=== PATIENT | male | born 1965 | race Caucasian/White ===

== ENCOUNTER 2016-09-06 15:49 | Emergency (ER) | payer OTHER ==
[2016-09-06] MEDS ORDERED: ONDANSETRON HCL 4 MG/2 ML VIAL ONE (16:16)
--- NOTE | 2016-09-06 16:38 | CT REPORT ---
HISTORY: Acute head trauma. Reference study is February 11, 2015. TECHNIQUE: Axial non-contrast images obtained from skull vertex through foramen magnum. Dose reduction technique was utilized. FINDINGS: There is no evidence of acute hemorrhage, mass, or infarct. Ventricles and sulci are normal in size for the patient's age. Periventricular white matter is within normal limits. Baker-white differentia tion is maintained. Basilar cisterns are normal. The calvarium is intact. Paranasal sinuses and mastoid air cells are clear. IMPRESSION: Normal head CT. Final Electronic Signature: This report was electronically signed by Zelalem Mukherjee MD, FACR on 4:36 PM. peter /
[2016-09-06] MEDS ORDERED: KETOROLAC TROMETHAMINE 30 MG/ML VIAL ONE (16:45)
--- NOTE | 2016-09-06 18:02 | ER NURSING DOCUMENTATION ---
Nurse's Notes [facility] Name:Asad Pineda Age:50 yrs Sex:Male :1965 Arrival Date:09/06/2016 Time:15:51 Bed4 Private MD:Gilberto Cruz Diagnosis:Closed Head Injury w/o Cranial Wound, Unspec State LOC Presentation: 09/06 15:56 Acuity: JOSHUA 2 st 16:17 Presenting complaint: Patient states: Fell backward in chair and hit occiput on filing sj cabinet. No LOC, but no N/V x4 with difficulty with words, and headache. Transition of care: Home. Mechanism of Injury: resulted from a direct blow, a solid object. Notified ED Physician of patient's arrival and CC Dr. Marcelino notified. 16:17 Method Of Arrival: Private Vehicle Triage Assessment: 16:22 General: Appears distressed, Behavior is cooperative, quiet. Pain: Complains of pain in sj entire head Pain currently is 6 out of 10 on a pain scale. Neuro: Level of Consciousness is awake, lethargic, Oriented to person, place, time, event, Reports headache in entire Denies blurred vision paresthesias. Cardiovascular: Capillary refill < 3 seconds. Respiratory: Respiratory effort is even, unlabored, Respiratory pattern is regular. Injury Description: Head injury sustained to right occipital area was sustained 1-2 hours ago. Historical: - Allergies: PENICILLINS; - Home Meds: 1. amlodipine oral 2. Bystolic oral 3. losartan-hydrochlorothiazide oral 4. Lexapro Oral 5. omeprazole Oral 6. Diazepam Oral 7. ProAir HFA 8. Xanax Oral 9. modafinil oral - PMHx: Hypertension; DEPRESSION; ANXIETY; concussion 20 years ago; vertigo; degenerative disc disease of lumbar, thoracic, cervical spine; hiatal hernia; GERD; - PSHx: back x 4; inguinal hernia repair; deviated septal repair; - Tetanus: < 10 years. - Immunization history: Pneumococcal vaccine status is unknown. - Ebola Screening: : Patient negative for fever greater than or equal to 101.5 degrees Fahrenheit, and additional compatible Ebola Virus Disease symptoms. Patient denies exposure to infectious person. Patient denies travel to an Ebola-affected area in the 21 days before illness onset. No symptoms or risks identified at this time. . - Social history: Smoking status: Patient states was never smoker of tobacco. Patient uses alcohol occasionally. Patient/guardian denies using marijuana. Screenin:25 Infectious Disease Risk None. Abuse screen: Denies threats or abuse. Denies injuries sj from another. Nutritional screening: No deficits noted. Vital Signs: 15:55 BP 144 / 83; Pulse 79; Resp 12; Temp 98.2(O); Pulse Ox 93% on R/A; Weight 102.06 kg; sj Height 5 ft. 6 in. (167.64 cm); Pain 6/10; 15:55 BP 158 / 88; Pulse 69; Pulse Ox 86% on R/A; sj 16:15 BP 133 / 78; Pulse 73; Pulse Ox 94% on R/A; Pain 7/10; sj 16:57 BP 178 / 111; Pulse 78; Resp 12; Pulse Ox 94% on 2 lpm NC; Pain 3/10; sj 17:45 BP 131 / 83; Pulse 67; Resp 14; Pulse Ox 94% on R/A; Pain 1/10; sj 15:55 Body Mass Index 36.32 (102.06 kg, 167.64 cm) Harleen Coma Score: 16:08 Eye Response: spontaneous(4). Verbal Response: oriented(5). Motor Response: obeys tl1 commands(6). Total: 15. 16:17 Eye Response: spontaneous(4). Verbal Response: oriented(5). Motor Response: obeys sj commands(6). Total: 15. 16 08:26 Eye Response: spontaneous(4). Verbal Response: oriented(5). Motor Response: obeys tl1 commands(6). Total: 15. Trauma Score (Adult): 09/06 17:59 Eye Response: spontaneous(1); Verbal Response: oriented(1); Motor Response: obeys sj commands(2); Systolic BP: > 89 mm Hg(4); Respiratory Rate: 10 to 29 per min(4); Harleen Score: 15; Trauma Score: 12 ED Course: 15:52 Patient arrived in ED. jl 15:53 Gilberto Cruz MD is Private Physician. jl 15:[address] 16:04 Louis Marcelino MD is Attending Physician. tl1 16:08 Priscila Mcclelland is Primary Nurse. sj 16:[address] jonas 16:25 Valuables Given to family. Patient has correct armband on for positive identification. Bed in low position. Call light in reach. Side rails up X2. Pulse Ox - RN Monitoring Only NIBP On - RN Monitoring Only. 16:26 Inserted saline lock: 20 gauge in left forearm and blood collected. 17:20 Gilberto Cruz MD is Referral Physician. tl1 Administered Medications: 16:05 Drug: Zofran 4 mg; Route: IVP; Infused Over: 2 mins; Site: left forearm; 16:39 Follow up: Response: Nausea is decreased sj 16:38 Drug: Toradol 15 mg; Route: IVP; Site: left forearm; sj 16:56 Follow up: Response: Pain is decreased Outcome: 17:21 Discharge ordered by . tl1 17:59 Discharged to home ambulatory, with family. sj 17:59 Condition: stable 17:59 Instructed on discharge instructions, follow up and referral plans. medication usage, Demonstrated understanding of instructions, medications, Prescriptions given X 2. 18:01 Patient left the ED. 06 09:26 Discharge F/U Call: Unable to reach: no answer st Signatures: Bonny Maravilla RN RN st Abbott, Louis Hoover MD MD tl1 Priscila Mcclelland Jeff jl
--- NOTE | 2016-09-06 18:02 | ER PHYSICIAN DOCUMENTATION ---
Physician Documentation [facility] Name:Asad Pineda Age:50 yrs Sex:Male :1965 Arrival Date:09/06/2016 Time:15:51 Bed4 Private MD:Gilberto Cruz ChariLouis Disposition: 09/06 19:00 Chart complete. tl1 Disposition: 09/06/16 17:21 Discharged to Home/Self Care. Impression: Closed Head Injury w/o Cranial Wound, Unspec State LOC. - Condition is Good. - Discharge Instructions: Acute Brain Injuries - HEAD INJURY, No Wake-Up (Adult). - Prescriptions for Superior 5- 325 mg Oral Tablet - take 1 tablet by ORAL route every 6 hours As needed; 20 tablet. Zofran 4 mg Oral Tablet - take 1-2 tablet by ORAL route every 4-6 hours As needed; 10 tablet. - Medical Reconciliation form form. - Follow up: Gilberto Cruz MD; When: 7 - 10 days; Reason: If symptoms return, Continuance of care. - Problem is new. - Symptoms have improved. HPI: 16:00 This 50 yrs old Male presents to ER with complaints of Head Injury-Adult, tl1 Nausea/Vomiting. 16:00 The patient or guardian reports injury. The complaints affect the right side of the tl1 back of head and right occipital area. Context of injury: The problem was sustained at work, resulted from A fall backwards while leaning back in his chair, striking his head on the corner of a filing cabinet before hitting the floor.. Onset: The symptom(s)/episode began/occurred suddenly, just prior to arrival, 1 hour(s) ago. Associated signs and symptoms: Loss of consciousness: This patient did not experience any loss of consciousness. Pertinent positives: headache, nausea, vomiting, generalized weakness, Pertinent negatives: double vision, neck pain, seizure. Severity of symptoms: At their worst the symptoms were moderate, in the emergency department the symptoms are unchanged. 16:08 Intracranial bleed risk factors: This patient has no risk factors for intracranial tl1 bleed. He came up because co-workers have noticed slow mentation and he has been typing inappropriate words in his emails.. Historical: - Allergies: PENICILLINS; - Home Meds: 1. amlodipine oral 2. Bystolic oral 3. losartan-hydrochlorothiazide oral 4. Lexapro Oral 5. omeprazole Oral 6. Diazepam Oral 7. ProAir HFA 8. Xanax Oral 9. modafinil oral - PMHx: Hypertension; DEPRESSION; ANXIETY; concussion 20 years ago; vertigo; degenerative disc disease of lumbar, thoracic, cervical spine; hiatal hernia; GERD; - PSHx: back x 4; inguinal hernia repair; deviated septal repair; - Tetanus: < 10 years. - Immunization history: Pneumococcal vaccine status is unknown. - Ebola Screening: : Patient negative for fever greater than or equal to 101.5 degrees Fahrenheit, and additional compatible Ebola Virus Disease symptoms. Patient denies exposure to infectious person. Patient denies travel to an Ebola-affected area in the 21 days before illness onset. No symptoms or risks identified at this time. . - Social history: Smoking status: Patient states was never smoker of tobacco. Patient uses alcohol occasionally. Patient/guardian denies using marijuana. ROS: 16:10 Constitutional: Positive for malaise. tl1 16:10 Eyes: Negative for blurry vision, pain, photophobia, redness, swelling, visual disturbance. 16:10 ENT: Negative for injury or acute deformity, tinnitus, nasal discharge, rhinorrhea. 16:10 Neck: Negative for injury or acute deformity, pain with movement, pain at rest, stiffness. 16:10 Neuro: Positive for headache, speech changes, Negative for gait disturbance, hearing loss, loss of consciousness, seizure activity, syncope. Exam: 16:11 Constitutional: The patient appears alert, awake, non-diaphoretic, non-toxic, well tl1 developed, well hydrated, well groomed, well nourished, restless, uncomfortable. 16:11 Head/face: Exam is negative for acute changes. 16:11 Head/face: Exam is negative for gordon signs, hematoma, raccoon eyes, swelling, Noted is no obvious of injury or deformity except tenderness, that is mild, of the right side of the back of head and right occipital area. 16:11 Eyes: Exam is negative for acute changes, Periorbital structures: appear normal, Pupils: equal, round, and reactive to light and accomodation, right pupil is approximately 3 mm(s), left pupil is approximately 3 mm(s), Extraocular movements: intact throughout. 16:11 ENT: External ear(s): are unremarkable, TM's: are normal, Nose: is normal. 16:11 Neck: External neck: is normal, C-spine: no acute changes, vertebral tenderness, is not appreciated, ROM/movement: is normal, is supple. 16:11 Chest/axilla: Palpation: is normal. 16:11 Cardiovascular: Rate: normal. 16:11 Respiratory: Respirations: normal. 16:11 Neuro: Orientation: is normal, Mentation: slow to respond, Memory: is normal, Cranial nerves: grossly normal, Motor: moves all fours, Gait: is steady. Vital Signs: 15:55 BP 144 / 83; Pulse 79; Resp 12; Temp 98.2(O); Pulse Ox 93% on R/A; Weight 102.06 kg; sj Height 5 ft. 6 in. (167.64 cm); Pain 6/10; 15:55 BP 158 / 88; Pulse 69; Pulse Ox 86% on R/A; sj 16:15 BP 133 / 78; Pulse 73; Pulse Ox 94% on R/A; Pain 7/10; sj 16:57 BP 178 / 111; Pulse 78; Resp 12; Pulse Ox 94% on 2 lpm NC; Pain 3/10; sj 17:45 BP 131 / 83; Pulse 67; Resp 14; Pulse Ox 94% on R/A; Pain 1/10; sj 15:55 Body Mass Index 36.32 (102.06 kg, 167.64 cm) Mason Coma Score: 16:08 Eye Response: spontaneous(4). Verbal Response: oriented(5). Motor Response: obeys tl1 commands(6). Total: 15. 16:17 Eye Response: spontaneous(4). Verbal Response: oriented(5). Motor Response: obeys sj commands(6). Total: 15. 09/07 08:26 Eye Response: spontaneous(4). Verbal Response: oriented(5). Motor Response: obeys tl1 commands(6). Total: 15. Trauma Score (Adult): 09/06 17:59 Eye Response: spontaneous(1); Verbal Response: oriented(1); Motor Response: obeys sj commands(2); Systolic BP: > 89 mm Hg(4); Respiratory Rate: 10 to 29 per min(4); Mason Score: 15; Trauma Score: 12 MDM: 16:04 Patient medically screened. 1 09/07 08:26 Differential diagnosis: Contusion of Hematoma on Intracranial bleed- Concussion tl1 cerebral contusion. Data reviewed: vital signs, nurses notes, radiologic studies, CT scan, and as a result, I will discharge patient. Counseling: I had a detailed discussion with the patient and/or guardian regarding: the historical points, exam findings, and any diagnostic results supporting the discharge/admit diagnosis, radiology results, the need for outpatient follow up, to return to the emergency department if symptoms worsen or persist or if there are any questions or concerns that arise at home. Medication response: The patient's symptoms have improved. 09/06 16:39 Order name: CAT SCAN; HEAD W/O CON [id number]; Complete Time: 17:20 EDMS 09/06 16:09 Order name: Iv Saline Lock; Complete Time: 16:39 sj Dispensed Medications: 09/06 16:05 Drug: Zofran 4 mg; Route: IVP; Infused Over: 2 mins; Site: left forearm; sj 16:39 Follow up: Response: Nausea is decreased 16:38 Drug: Toradol 15 mg; Route: IVP; Site: left forearm; sj 16:56 Follow up: Response: Pain is decreased Signatures: Louis Marcelino MD MD 1 Priscila Mcclelland
== END 2016-09-06 18:02 | disposition home or self-care (01) ==
LOC: ER 15:51
DX: S06.890A Other specified intracranial injury without loss of consciousness, initial encounter (principal); R11.2 Nausea with vomiting, unspecified; R53.81 Other malaise; R47.89 Other speech disturbances; W07.XXXA Fall from chair, initial encounter; Y92.59 Other trade areas as the place of occurrence of the external cause; I10 Essential (primary) hypertension; Z79.899 Other long term (current) drug therapy
CPT/HCPCS: 70450; 96374; 96375; 99284; J1885; J2405